=== PATIENT | female | born 1970 | race Caucasian/White ===

== ENCOUNTER 2018-10-08 14:11 | Emergency (ER) | payer BC, SELFPAY ==
[2018-10-08 14:15] VITALS: BP 143/81; PULSE 86; RESP 18; TEMP 36.5; O2SAT 100
--- NOTE | 2018-10-08 14:57 | DI.RAD_ITS ---
SYMPTOM/DIAGNOSIS: LT ANT RIB PAIN UPON SITTING UP LEFT RIBS AND PA AND LATERAL CHEST: No priors. Heart size and pulmonary vasculature are within normal limits. The lungs are clear. No fracture is identified. The ribs are unremarkable. IMPRESSION: Negative examination.
--- NOTE | 2018-10-08 14:58 | W.ED.GENAD ---
Discharge Plan Disposition Patient Disposition: HOME Condition: Stable Discharge Details Chief Complaint: Orthopedic Clinical Impression: Contusion of rib on left side, Chest wall muscle strain Primary Care Provider: Tara,Local ED Provider: Emerald Sandoval Home Meds and New Rx's Prescriptions: Continued dextroamphetamine-amphetamine [Adderall] 20 mg Tablet 20 mg PO DAILY RF: 0 Multi Vitamin 9 mg iron/15 mL Liquid RF: 0 Discharge Instructions Instructions: Muscle Strain (ED), Rib Contusion (ED) Additional Instructions: Alternate Tylenol and Motrin as needed and directed for pain. Apply ice to the affected area several times daily for 20 minutes at a time. You may also apply heat to the affected area. Follow-up with your primary care doctor in 1 week for reevaluation as needed. Return immediately to the emergency department any worsening or new concerning symptoms. Discharge Data Discharge Date/Time-TO BE ENTERED AT DEPARTURE: 10/08/18 16:36 Discharge Physician: Emerald Sandoval Medical Decision Making 48-year-old female who presents with left anterior rib pain after crunching sensation sound upon getting up from the ground after fall while snowboarding. No other injuries. She denies direct blunt injury to ribs and only admits to crunching sensation upon getting up. She denies any headache, neck pain, back pain, shortness of breath, abdominal pain or vomiting. Vitals within normal limits. Lungs clear and to auscultation bilaterally. Tenderness to palpation with bony prominence noted to left anterior inferior rib cage. No crepitus noted. Abdomen soft nontender. No rash or trauma noted to chest or abdomen. Will send for left ribs and PA/lateral chest x-ray. Patient is declining pain medication at this time. H/o uterine ablation, no menses. 161 --x-ray negative for fracture. Discussed with patient that an x-ray can miss a small/hairline rib fracture, but the treatment is the same. 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 Discussed that definitive diagnosis for a rib fracture would include CT chest, but she is declining this at this time. She knows the treatment is the same in terms of Motrin, Tylenol, ice. She will follow-up with a primary care doctor for reevaluation as needed and return here at any time if worse. Medical Records Medical records reviewed: Yes I reviewed the patient's medical records. Imaging Data Radiologic Study: Radiologist's impression: XR Left Ribs, 2 Views EXAM DATE/TIME: 10/08/2018 2:58 PM FINDINGS: Bones/joints: No fracture or dislocation. No lytic or blastic bony lesions. No bony expansion, erosion or periosteal reaction. Soft tissues: Normal. IMPRESSION: Negative. No rib abnormality. XR Chest, 2 Views EXAM DATE/TIME: 10/08/2018 2:58 PM FINDINGS: Lungs: Unremarkable. No consolidation. Pleural space: Unremarkable. No pleural effusion. No pneumothorax. Heart/Mediastinum: Unremarkable. No cardiomegaly. Bones/joints: Minimal degenerative changes of the spine. IMPRESSION: Negative chest exam. HPI General Mode of arrival: ambulatory. Date/Time Provider Initiated Documentation: 10/08/18 14:40. Limitations to Documentation: no limitations. Information obtained by: patient. HPI Narrative: Pt is a 48yo F who presents with concern for L rib fracture after fall while snowboarding. Pt states she fell backwards while snowboarding but denies any injuries with the fall itself. She states she was attempting to get herself up from the ground when she felt a crunch in her L lower rib under her breast. She states she felt crunching or crepitus to the touch. She denies any other injuries, headache, neck pain, back pain, abdominal pain, extremity injury, nausea or vomiting. She has not taken anything for pain. Related Data Home Medications Medication Instructions Recorded Confirmed Multi Vitamin 10/08/18 dextroamphetamine-amphetamine 20 mg PO DAILY 10/08/18 10/08/18 [Adderall] Allergies Allergy/AdvReac Type Severity Reaction Status Date / Time No Known Allergies Allergy Unverified 10/08/18 14:14 General Stated Complaint: RespSymp HERMELINDA: 4 Review of Systems Review of Systems All systems reviewed & are unremarkable except as noted in HPI and below Constitutional Reports as per HPI, Denies chills and Denies fever(s) Eyes Denies blurry vision ENT Denies dizziness, Denies sore throat and Denies throat swelling Cardiovascular Denies chest pain and Denies dyspnea Respiratory Denies cough and Denies dyspnea Gastrointestinal Denies abdominal pain, Denies diarrhea and Denies vomiting Genitourinary Denies hematuria and Denies dysuria Musculoskeletal Denies back pain, Denies numbness and Reports other (L rib pain) Integumentary/Breasts Denies lesions and Denies rash Neurologic Denies dizziness, Denies focal weakness and Denies numbness Allergic/Immunologic Denies throat swelling FOR[facility]LY [facility] Medical History Rectal prolapse (Acute) Surgical History History of endometrial ablation (Acute) Social History Smoking and Tabacco status: Never alcohol intake: never substance use type: does not use Exam Const General: cooperative, healthy appearing and no acute distress HENMT Head: normal to inspection Face and sinus: normal facial exam Eyes General: appearance normal, both eyes and all related structures EOM: EOM intact bilaterally Neck Neck: normal visual inspection and No submandibular swelling Chest Chest/axillae images: 1. Tenderness to palpation/bony prominence to L anterior inferior ribcage. No crepitus. No erythema, edema, ecchymoses, abrasion, laceration. Resp Effort & Inspection: normal respiratory effort and able to speak in complete sentences Auscultation: clear to auscultation bilaterally Cardio Rate: regular rate Rhythm: regular rhythm GI Inspection: normal to inspection and no abdominal wall ecchymosis Palpation: soft, not firm, not rigid and nontender Auscultation: normal bowel sounds Skin General skin exam: no rashes or lesions noted Neuro General: alert, awake and oriented x3 Cognition: normal cognition Speech: speech normal Motor: muscle tone normal throughout Sensory Exam: no sensory deficits noted Extrem General: full ROM Psych Appearance: grossly normal Mental Status: mental status grossly normal Speech and Movement: speech and movement normal Affect: normal affect Course Vital Signs Temperature 97.7 F 10/08/18 14:15 Pulse 86 10/08/18 14:15 Respiratory Rate 18 10/08/18 14:15 Blood Pressure 143/81 H 10/08/18 14:15 Pulse Oximetry 100 10/08/18 14:15 Temperature 97.7 F 10/08/18 14:15 Temperature Source Temporal Artery Scan 10/08/18 14:15 Pulse 86 10/08/18 14:15 Respiratory Rate 18 10/08/18 14:15 Respiratory Effort 10/08/18 14:15 Blood Pressure 143/81 H 10/08/18 14:15 Blood Pressure Position Sitting 10/08/18 14:15 Pulse Oximetry 100 10/08/18 14:15 Oxygen Delivery Method Room Air 10/08/18 14:15 Oxygen Flow Rate 0 10/08/18 14:15
--- NOTE | 2018-10-08 16:09 | DI.VRAD_ITS ---
EXAM: XR Left Ribs, 2 Views EXAM DATE/TIME: 10/08/2018 2:58 PM CLINICAL HISTORY: 48 years old, female; Signs and symptoms; Other: L anterior rib pain upon sitting up TECHNIQUE: XR Left ribs 2 views. COMPARISON: No relevant prior studies available. FINDINGS: Bones/joints: No fracture or dislocation. No lytic or blastic bony lesions. No bony expansion, erosion or periosteal reaction. Soft tissues: Normal. IMPRESSION: Negative. No rib abnormality. EXAM: XR Chest, 2 Views EXAM DATE/TIME: 10/08/2018 2:58 PM CLINICAL HISTORY: 48 years old, female; Signs and symptoms; Other: L anterior rib pain upon sitting up TECHNIQUE: XR of the chest, 2 views. COMPARISON: No relevant prior studies available. FINDINGS: Lungs: Unremarkable. No consolidation. Pleural space: Unremarkable. No pleural effusion. No pneumothorax. Heart/Mediastinum: Unremarkable. No cardiomegaly. Bones/joints: Minimal degenerative changes of the spine. IMPRESSION: Negative chest exam. Dictated and Authenticated by: Felecia Donaldson MD. Ordering:GREYSON Corbin MD
== END 2018-10-08 16:36 | disposition home or self-care (01) ==
PROVIDERS: Emergency Provider Physician Assistant
DX: S20.212A Contusion of left front wall of thorax, initial encounter (principal); S29.011A Strain of muscle and tendon of front wall of thorax, initial encounter; V00.311A Fall from snowboard, initial encounter; Z53.29 Procedure and treatment not carried out because of patient's decision for other reasons
CPT/HCPCS: 99283; 71046; 71100; 99282